=== PATIENT | male | born 1985 | race Two or more races ===

== ENCOUNTER 2018-04-12 17:59 | Emergency (ER) | payer BC ==
[2018-04-12] MEDS ORDERED: NS 1,000 ML IV ONE (18:35)
--- NOTE | 2018-04-12 18:37 | EDPHY ---
H & P Stated Complaint: RLQ pain Time Seen by Provider: 04/12/18 18:29 HPI/ROS: CHIEF COMPLAINT: Abdominal pain x3 days HISTORY OF PRESENT ILLNESS: 32-year-old male with no history of abdominal surgeries or chronic abdominal pathology complaining of right upper and right lower quadrant abdominal pain for the past 3 days (started on Tuesday). He does admit to heavy alcohol use this over the weekend. Intermittent nausea with no vomiting. Bowel movements normal. No back or flank pain. No fever or chills. No testicular pain. No urinary abnormality. Last oral intake was 2:00 p.m. today consisting with sandwich REVIEW OF SYSTEMS: A ten point review of systems was performed and is negative with the exception of the items mentioned in the HPI PAST MEDICAL & SURGICAL HISTORY: No pertinent medical or surgical history SOCIAL HISTORY: Heavy alcohol use the days preceding symptoms PHYSICAL EXAM (Prior to examination, patient consented to physical exam, hands were washed and my usual and customary physical exam procedures followed) 1) GENERAL: Well-developed, well-nourished, alert and oriented. Appears nontoxic. 2) HEAD: Normocephalic, atraumatic 3) HEENT: Pupils equal, round, reactive to light bilaterally. Sclera anicteric. [Nasopharynx, oropharynx, clear, no lesions. Dry mucous membranes 4) NECK: Full range of motion, no meningeal signs. 5) LUNGS: Clear auscultation bilaterally, no wheezes, no rhonchi, no retractions. 6) HEART: Regular rate and rhythm, no murmur, no heave, no gallop. 7) ABDOMEN: No guarding, tender to palpation right upper and right lower quadrant. Negative Rovsing's, negative peritoneal sign, 8) MUSCULOSKELETAL: Moving all extremities, no focal areas of tenderness, no obvious trauma. No peripheral edema or discoloration. 9) BACK: No CVA tenderness, no midline vertebral tenderness, no fluctuance, no step-off, no obvious trauma, no visual or palpable abnormality. 10) SKIN: No rash, no petechiae. 11) : Uncircumcised, no urethral discharge, bilateral testicles nontender, bilateral cremasteric reflex present and brisk DIFFERENTIAL DIAGNOSIS: My differential diagnosis includes, but is not limited to, acute appendicitis, acute cholecystitis, bowel obstruction, acute pancreatitis, testicular torsion, gastritis and urinary tract infection. The patient understands that this diagnosis is provisional and can never be 100% accurate. This is a partial list of diagnoses considered. These considerations are based on history, physical exam, past history and reassessment. - Personal History Current Tetanus/Diphtheria Vaccine: Yes - Medical/Surgical History Hx Asthma: No Hx Chronic Respiratory Disease: No Hx Diabetes: No Hx Cardiac Disease: No Hx Renal Disease: No Hx Cirrhosis: No Hx Alcoholism: No Other PMH: Acne - Social History Smoking Status: Never smoked Constitutional: Initial Vital Signs Temperature (C) 36.7 C 04/12/18 18:11 Heart Rate 72 04/12/18 18:11 Respiratory Rate 18 04/12/18 18:11 Blood Pressure 157/87 H 04/12/18 18:11 O2 Sat (%) 97 04/12/18 18:11 O2 Delivery Mode Room Air Allergies/Adverse Reactions: No Known Allergies Allergy (Unverified 04/12/18 18:14) Home Medications: Medication Instructions Recorded Onexton Gel Pump 04/12/18 Tazorac 04/12/18 Medical Decision Making - Diagnostics Imaging Results: Imaging Impressions Abdomen CT 04/12/18 18:35 Impression: 1. No evidence for appendicitis. 2. See above report for additional findings. Results called and discussed with Cheryle COFFEY on 04/12/2018 at 19:58. Abdomen Ultrasound 04/12/18 18:35 Impression: Right upper quadrant ultrasound negative for cholelithiasis or secondary findings to suggest acute cholecystitis. Results called and discussed with Cheryle Harding on 04/12/2018 at 19:40. Images reviewed myself ED Course/Re-evaluation: 830 p.m.: Re-evaluation. Re-examined. He is sleeping, easily woken, abdomen is soft no guarding no rebound. Discussed his imaging and laboratory findings. Doubt acute surgical abdominal pathology, doubt acute appendicitis, doubt acute testicular torsion, doubt acute pancreatitis. At this time I do not think that hospitalization for emergent consultation with Gastroenterology or general surgery indicated. He feels comfortable being discharged. I think he is safe for discharge with usual and customary abdominal precautions. I saw this patient independently based on established practice protocols. Care of patient under supervision of primary supervising physician Dr Villasenor . - Data Points Laboratory Results: Laboratory Results 04/12/18 18:46 04/12/18 18:46 04/12/18 04/12/18 04/12/18 18:53 18:46 18:46 WBC 7.40 10^3/uL 10^3/uL (3.80-9.50) RBC 5.77 10^6/uL 10^6/uL (4.40-6.38) Hgb 17.5 g/dL g/dL (13.7-17.5) POC Hgb 17.0 gm/dL gm/dL (13.7-17.5) Hct 48.8 % % (40.0-51.0) POC Hct 50 % % (40-51) MCV 84.6 fL fL (81.5-99.8) MCH 30.3 pg pg (27.9-34.1) MCHC 35.9 g/dL g/dL (32.4-36.7) RDW 12.4 % % (11.5-15.2) Plt Count 321 10^3/uL 10^3/uL (150-400) MPV 9.1 fL fL (8.7-11.7) Neut % (Auto) 59.9 % % (39.3-74.2) Lymph % (Auto) 27.4 % % (15.0-45.0) [place] % (Auto) 8.6 % % (4.5-13.0) Eos % (Auto) 3.6 % % (0.6-7.6) Baso % (Auto) 0.4 % % (0.3-1.7) Nucleat RBC Rel Count 0.0 % % (0.0-0.2) Absolute Neuts (auto) 4.42 10^3/uL 10^3/uL (1.70-6.50) Absolute Lymphs (auto) 2.03 10^3/uL 10^3/uL (1.00-3.00) Absolute Monos (auto) 0.64 10^3/uL 10^3/uL (0.30-0.80) Absolute Eos (auto) 0.27 10^3/uL 10^3/uL (0.03-0.40) Absolute Basos (auto) 0.03 10^3/uL 10^3/uL (0.02-0.10) Absolute Nucleated RBC 0.00 10^3/uL 10^3/uL (0-0.01) Immature Gran % 0.1 % % (0.0-1.1) Immature Gran # 0.01 10^3/uL 10^3/uL (0.00-0.10) POC Sodium 141 mEq/L mEq/L (135-145) Sodium 138 mEq/L mEq/L (135-145) POC Potassium 3.7 mEq/L mEq/L (3.3-5.0) Potassium 4.0 mEq/L mEq/L (3.3-5.0) POC Chloride 107 mEq/L mEq/L (97-110) Chloride 105 mEq/L mEq/L (97-110) Carbon Dioxide 21 mEq/l L mEq/l (22-31) Anion Gap 12 mEq/L mEq/L (8-16) POC BUN 22 mg/dL mg/dL (7-23) BUN 22 mg/dL mg/dL (7-23) Creatinine 0.9 mg/dL mg/dL (0.7-1.3) POC Creatinine 1.0 mg/dL mg/dL (0.7-1.3) Estimated GFR > 60 Glucose 90 mg/dL mg/dL (70-100) POC Glucose 94 mg/dL mg/dL (70-100) Calcium 9.8 mg/dL mg/dL (8.5-10.4) Total Bilirubin 1.0 mg/dL mg/dL (0.1-1.4) Conjugated Bilirubin 0.3 mg/dL mg/dL (0.0-0.5) Unconjugated Bilirubin 0.7 mg/dL mg/dL (0.0-1.1) AST 27 IU/L IU/L (17-59) ALT 52 IU/L IU/L (21-72) Alkaline Phosphatase 73 IU/L IU/L (38-126) Total Protein 7.9 g/dL g/dL (6.3-8.2) Albumin 4.5 g/dL g/dL (3.5-5.0) Lipase 73 IU/L IU/L (23-300) Medications Given: Discontinued Medications Sodium Chloride (Ns) 1,000 mls @ 0 mls/hr IV EDNOW ONE; Wide Open PRN Reason: Protocol Stop: 04/12/18 18:36 Last Admin: 04/12/18 18:45 Dose: 1,000 mls Point of Care Test Results: Chemistry 04/12/18 18:53 POC Sodium 141 mEq/L mEq/L (135-145) POC Potassium 3.7 mEq/L mEq/L (3.3-5.0) POC Chloride 107 mEq/L mEq/L (97-110) POC BUN 22 mg/dL mg/dL (7-23) POC Creatinine 1.0 mg/dL mg/dL (0.7-1.3) POC Glucose 94 mg/dL mg/dL (70-100) ISTAT H&H 04/12/18 18:53 POC Hgb 17.0 gm/dL gm/dL (13.7-17.5) POC Hct 50 % % (40-51) Departure - Departure Disposition: Home, Routine, Self-Care Clinical Impression: Abdominal pain Qualifiers: Abdominal location: right lower quadrant Qualified Code(s): R10.31 - Right lower quadrant pain Condition: Good Instructions: Acute Abdominal Pain (ED) Additional Instructions: Seek immediate medical attention if you develop new or worsening symptoms, if you develop fevers, chills, inability to tolerate oral intake or any other symptoms that concerns you. Referrals: Brandon Morgan MD [[facility] Primary Care Provider] - 1 day, if not improved
[2018-04-12 19:03] LABS: PLATELET COUNT 321 10^3/uL (150-400)
[2018-04-12] MEDS ORDERED: IOPAMIDOL (ISOVUE-300) 100 ML BTL ONE (19:12)
[2018-04-12 20:09] VITALS: BP 119/61
== END 2018-04-12 20:55 | disposition home or self-care (01) ==
DX: R10.31 Right lower quadrant pain (principal); E86.9 Volume depletion, unspecified
CPT/HCPCS: 82435-PO; 82565-PO; 82947-PO; 84132-PO; 84295-PO; 84520-PO; 85014-PO; Q9967

== ENCOUNTER → 2019-01-12 | Outpatient (CLI) | payer BC | LOC: FIMAGING 07:13 | PROVIDERS: ATTEND Physician Assistant | DX: R10.11 Right upper quadrant pain (principal) ==